=== PATIENT | female | born 1980 | race Caucasian/White ===

== ENCOUNTER 2017-04-30 10:21 | Observation (INO) | payer MEDICAID ==
[~2017-04-30] VITALS: Ht 157.5 cm; Wt 63.5 kg
[2017-04-30 11:00] VITALS: BP 119/71
== END 2017-04-30 13:10 | disposition home or self-care (01) ==
LOC: MLD 10:21
PROVIDERS: ADMIT Obstetrics & Gynecology; ATTEND Obstetrics & Gynecology
DX: O26.893 Other specified pregnancy related conditions, third trimester (principal); R10.9 Unspecified abdominal pain; Z3A.38 38 weeks gestation of pregnancy
CPT/HCPCS: 76805; G0378; Q0092; 59025; 81000

== ENCOUNTER 2017-05-06 06:28 | Inpatient (IN) | payer MEDICAID ==
[~2017-05-06] VITALS: Ht 154.9 cm; Wt 64.0 kg
[2017-05-06] MEDS ORDERED: PREN-546 PO (07:54)
[2017-05-06 08:01] VITALS: BP 118/74
[2017-05-06] MEDS ORDERED: LACTATED RINGERS 1,000 ML IV SCH (08:37)
[2017-05-06 09:41] LABS: BASOPHILS # (AUTO) 0.1 K/uL (0.00-0.22); BASOPHILS % (AUTO) 1.3 % (0.0-2.0); EOSINOPHILS # (AUTO) 0.1 K/uL (0-0.4); EOSINOPHILS % (AUTO) 1.3 % (0.0-4.0); HEMATOCRIT 40.8 % (36-48); HEMOGLOBIN 13.4 g/dL (12.0-16.0); LYMPHOCYTES # (AUTO) 1.1 K/uL (2.5-16.5); LYMPHOCYTES % (AUTO) 12.9 % (20.5-51.1); MEAN CORPUSCULAR HEMOGLOBIN 32 pg (27-31); MEAN CORPUSCULAR HGB CONC 33 g/dL (33-37); MEAN CORPUSCULAR VOLUME 97.3 fL (80-94); MONOCYTES # (AUTO) 0.8 K/uL (0.8-1.0); MONOCYTES % (AUTO) 9.7 % (1.7-9.3); NEUTROPHILS # (AUTO) 6.3 K/uL (1.8-7.7); NEUTROPHILS % (AUTO) 74.8 % (42.2-75.2); PLATELET COUNT (AUTO) 206 K/uL (140-450); RED BLOOD CELL COUNT(AUTO) 4.19 MIL/uL (4.20-5.40); WHITE BLOOD COUNT (AUTO) 8.4 K/uL (4.8-10.8)
[2017-05-06 10:03] LABS: ANION GAP 13.2 (8-16); CARBON DIOXIDE 25.3 mmol/L (21-32); CREATININE 0.6 mg/dL (0.6-1.3); POTASSIUM 4.5 mmol/L (3.5-5.1)
[2017-05-06 10:09] LABS: ALBUMIN 2.5 g/dL (3.4-5.0); TOTAL BILIRUBIN 0.7 mg/dL (0.0-1.0)
[2017-05-06 10:20] LABS: APPEARANCE,URINE CLEAR (CLEAR); BILIRUBIN,URINE NEGATIVE (NEGATIVE); BLOOD, URINE NEGATIVE (NEGATIVE); COLOR,URINE YELLOW (YELLOW); LEUKOCYTE ESTERASE ,URINE 3+ (NEGATIVE); NITRITE, URINE NEGATIVE (NEGATIVE); PH,URINE 6.5 (5.0-9.0); UGLUCOSE NEGATIVE (NEGATIVE)
[2017-05-06 10:23] LABS: RBC,URINE 0-5 (RARE) /HPF (0-5); WBC,URINE 20-60 /HPF (0-5)
--- NOTE | 2017-05-06 10:28 | NUR ---
PATIENT HAS BEEN SCREENED AND CATEGORIZED LOW NUTRITION RISK. PATIENT WILL BE SEEN WITHIN 7 DAYS OF ADMISSION. 05/12/[address]
[2017-05-06] MEDS ORDERED: ePHEDrine 50 MG/ML VIAL ONE (10:30)
[2017-05-06] MEDS ORDERED: ONDANSETRON 4 MG/2 ML VIAL ONE (10:30)
[2017-05-06] MEDS ORDERED: BUPIVACAINE-MPF 0.75% 10 ML VIAL INJ ONE (10:30)
[2017-05-06] MEDS ORDERED: MIDAZOLAM 2 MG/2 ML VIAL ONE (10:43)
[2017-05-06] MEDS ORDERED: KETAMINE 500 MG/5 ML VIAL ONE (10:43)
[2017-05-06] MEDS ORDERED: fentaNYL 0.05 MG/ML VIAL ONE (10:43)
[2017-05-06] MEDS ORDERED: MORPHINE PRES FREE 10 MG/10 ML AMP IV ONE (10:44)
[2017-05-06] MEDS ORDERED: OXYTOCIN 10 UNITS/ML VIAL ONE ×2 (11:34→13:07)
[2017-05-06] MEDS ORDERED: diphenhydrAMINE 50 MG/ML VIAL IVP PRN (11:40)
[2017-05-06] MEDS ORDERED: ONDANSETRON 4 MG/2 ML VIAL IVP PRN (11:40)
[2017-05-06] MEDS ORDERED: KETOROLAC 30 MG/ML VIAL ONE (13:48)
[2017-05-06] MEDS ORDERED: MEASLES, MUMPS, AND RUBELLA 1 VIAL SQVAC PRN (13:55)
[2017-05-06] MEDS ORDERED: KETOROLAC 30 MG/ML VIAL IVP PRN (13:55)
[2017-05-06] MEDS: OXYTOCIN 20 UNITS in LACTATED RINGERS 1,000 ML IV SCH ×2 (15:40→22:51)
[2017-05-06] MEDS: KETOROLAC 30 MG/ML VIAL IVP PRN (20:04)
[2017-05-07] MEDS: KETOROLAC 30 MG/ML VIAL IVP PRN ×2 (02:45→11:29)
[2017-05-07] MEDS ORDERED: OXYTOCIN 20 UNITS/LR PREMIX 1,000 ML IV ONE (06:30)
[2017-05-07] MEDS: OXYTOCIN 20 UNITS in LACTATED RINGERS 1,000 ML IV SCH (06:34)
[2017-05-07] MEDS: HYDROmorphone PFS 2 MG/ML SYR IVP PRN ×2 (08:08→15:51)
[2017-05-07 10:05] LABS: BASOPHILS # (AUTO) 0.1 K/uL (0.00-0.22); BASOPHILS % (AUTO) 0.6 % (0.0-2.0); EOSINOPHILS # (AUTO) 0.1 K/uL (0-0.4); EOSINOPHILS % (AUTO) 0.5 % (0.0-4.0); HEMATOCRIT 36.1 % (36-48); HEMOGLOBIN 12.2 g/dL (12.0-16.0); LYMPHOCYTES # (AUTO) 0.9 K/uL (2.5-16.5); LYMPHOCYTES % (AUTO) 7.2 % (20.5-51.1); MEAN CORPUSCULAR HEMOGLOBIN 33 pg (27-31); MEAN CORPUSCULAR HGB CONC 34 g/dL (33-37); MEAN CORPUSCULAR VOLUME 96.9 fL (80-94); MONOCYTES # (AUTO) 0.9 K/uL (0.8-1.0); MONOCYTES % (AUTO) 7.4 % (1.7-9.3); NEUTROPHILS # (AUTO) 10.1 K/uL (1.8-7.7); NEUTROPHILS % (AUTO) 84.3 % (42.2-75.2); PLATELET COUNT (AUTO) 167 K/uL (140-450); RED BLOOD CELL COUNT(AUTO) 3.73 MIL/uL (4.20-5.40); RED CELL DISTRIBUTION WIDTH 12.9 % (11.6-13.7); WHITE BLOOD COUNT (AUTO) 12.1 K/uL (4.8-10.8)
[2017-05-07] MEDS ORDERED: ACETAMINOPHEN 325 MG TAB PO PRN (22:00)
[2017-05-08] MEDS ORDERED: BISACODYL 5 MG TABEC PO PRN (08:00)
[2017-05-08] MEDS ORDERED: SODIUM PHOSPHATE 118 ML ENEM RC PRN (08:00)
[2017-05-08] MEDS ORDERED: IBUPROFEN 600 MG TAB PO PRN (08:00)
[2017-05-08] MEDS: DOCUSATE SODIUM 100 MG GELCAP PO PRN (08:29)
[2017-05-08] MEDS: SIMETHICONE 80 MG TAB.CHEW PO PRN ×2 (08:29→16:49)
[2017-05-08] MEDS: oxyCODONE/APAP 5/325 MG 1 TAB TAB PO PRN ×2 (08:30→16:49)
[2017-05-09] MEDS: oxyCODONE/APAP 5/325 MG 1 TAB TAB PO PRN ×3 (01:26→18:19)
[2017-05-09] MEDS: SIMETHICONE 80 MG TAB.CHEW PO PRN ×2 (10:17→18:19)
[2017-05-09] MEDS: DOCUSATE SODIUM 100 MG GELCAP PO PRN (21:00)
[2017-05-10] MEDS: oxyCODONE/APAP 5/325 MG 1 TAB TAB PO PRN ×2 (02:45→11:49)
[2017-05-10] MEDS ORDERED: FERR325E14 PO (10:09)
[2017-05-10] MEDS ORDERED: IBUP-1842 PO (10:10)
== END 2017-05-10 15:25 | disposition home or self-care (01) | DRG 540 ==
LOC: MLD 07:29 → MFCC 10:45
PROVIDERS: ADMIT Obstetrics & Gynecology; ATTEND Obstetrics & Gynecology
PROC: 0UB70ZZ Excision of Bilateral Fallopian Tubes, Open Approach (ICD-10-PCS; 2017-05-06)
PROC: 10D00Z1 Extraction of Products of Conception, Low, Open Approach (ICD-10-PCS; principal; 2017-05-06 10:30)
DX: O34.211 Maternal care for low transverse scar from previous cesarean delivery (principal); O69.81X0 Labor and delivery complicated by cord around neck, without compression, not applicable or unspecified; Z37.0 Single live birth; Z3A.39 39 weeks gestation of pregnancy; Z30.2 Encounter for sterilization
CPT/HCPCS: 36415; 51702; 80053; 81001; 85025; 86592; 86886; 86900; 86901; 87081; 87086; 88302; J0690; J1170; J1885; J2250; J2270; J2405; J2590; J3010; J3490; J7060; J7120